=== PATIENT | female | born 1950 | race Caucasian/White ===

== ENCOUNTER 2018-08-19 14:39 | Emergency (ER) | payer MEDICARE ==
[~2018-08-19] VITALS: Ht 157.5 cm; Wt 72.7 kg
[2018-08-19 14:42] VITALS: BP 164/95
[2018-08-19] MEDS ORDERED: mag hydrox/Alum hydrox/simeth 30ml oral suspension PO ONE (15:25)
[2018-08-19] MEDS ORDERED: famotidine 20mg tablet PO ONE (15:25)
[2018-08-19] MEDS ORDERED: LIDOcaine Viscous 15ml cup PO ONE (15:25)
[2018-08-19] MEDS ORDERED: sucralfate 1 gm tablet PO ONE (15:25)
[2018-08-19] MEDS ORDERED: PENI250T2 PO (16:05)
[2018-08-19] MEDS ORDERED: PANT20TA2 PO (16:05)
== END 2018-08-19 16:20 | disposition home or self-care (01) ==
LOC: ER 14:41
DX: R10.13 Epigastric pain (principal); M27.69 Other endosseous dental implant failure; R53.83 Other fatigue; R22.1 Localized swelling, mass and lump, neck; R20.0 Anesthesia of skin; K08.409 Partial loss of teeth, unspecified cause, unspecified class; K08.89 Other specified disorders of teeth and supporting structures; Z79.899 Other long term (current) drug therapy; Z88.6 Allergy status to analgesic agent
CPT/HCPCS: 93005; 99284